=== PATIENT | female | born 1940 | race Two or more races ===

== ENCOUNTER 2019-02-25 07:16 | Outpatient (CLI) | payer OTHER ==
[~2019-02-25 07:16] MED LIST: FLEXERIL10 MG PO; METOPROLOL SUCC25 MG PO; SYNTHROID75 MCG PO; ULTRAM50 MG PO
== END 2019-02-25 07:21 | disposition home or self-care (01) ==
LOC: NUCLEAR 07:16
DX: I25.10 Atherosclerotic heart disease of native coronary artery without angina pectoris (principal)
CPT/HCPCS: 78452; 93017; A9500; J0153

== ENCOUNTER 2022-12-29 07:30 | Outpatient (CLI) | payer OTHER | END 2022-12-29 07:33 | disposition home or self-care (01) | LOC: NUCLEAR 07:30 | PROVIDERS: ATTEND Internal Medicine Cardiovascular Disease | DX: I25.10 Atherosclerotic heart disease of native coronary artery without angina pectoris (principal); I73.9 Peripheral vascular disease, unspecified; I87.2 Venous insufficiency (chronic) (peripheral) | CPT/HCPCS: 78452; 93017; A9500; J0153 ==

== ENCOUNTER 2023-12-31 12:08 | Emergency (ER) | payer OTHER ==
[~2023-12-31] VITALS: Ht 160 cm; Wt 81.6 kg
[2023-12-31] MEDS ORDERED: VITAMIN D325 MC2 (12:56)
[2023-12-31] MEDS ORDERED: CHILDREN'S ASPI81 MG (12:57)
[2023-12-31] MEDS ORDERED: LEVOXYL75 MCG (12:58)
[2023-12-31] MEDS ORDERED: ORPHENADRINE CITRATE 100 MG TABLET PO STA (13:37)
[2023-12-31] MEDS ORDERED: ACETAMINOPHEN 500 MG GEL..CAP PO STA (13:37)
[2023-12-31] MEDS ORDERED: DEXAMETHASONE SODIUM PHOSPHATE 4 MG/ML VIAL IM STA (13:37)
[2023-12-31] MEDS ORDERED: ACETAMINOPHEN 500 MG GEL..CAP PO ONE (13:44)
[2023-12-31] MEDS ORDERED: DEXAMETHASONE SODIUM PHOSPHATE 4 MG/ML VIAL ONE (13:44)
== END 2023-12-31 18:08 | disposition home or self-care (01) ==
LOC: ER 12:10
DX: S00.83XA Contusion of other part of head, initial encounter (principal); S30.0XXA Contusion of lower back and pelvis, initial encounter; W18.30XA Fall on same level, unspecified, initial encounter; Y93.89 Activity, other specified; Y92.010 Kitchen of single-family (private) house as the place of occurrence of the external cause; Z88.2 Allergy status to sulfonamides
CPT/HCPCS: 70450; 72100; 72125; 72170; 72220; 96372; 99284; J1100